=== PATIENT | male | born 1940 | race Caucasian/White ===

== ENCOUNTER 2018-02-18 21:20 | Inpatient (IN) | payer MEDICARE ==
[~2018-02-18] VITALS: Ht 175.3 cm; Wt 88.9 kg
[2018-02-18 21:30] VITALS: BP 140/87
[2018-02-18] MEDS ORDERED: cefTRIAXone 1 GM in NS 55 ML IVPB ONE (21:30)
[2018-02-18] MEDS ORDERED: NS 1000ml 2,900 ML IVLG ONE (21:30)
[2018-02-18 22:14] LABS: BASOPHILS % (AUTO) 1.8 % (0.0-2.0); EOSINOPHILS % (AUTO) 0.5 % (0.0-3.0); HEMATOCRIT 37.8 % (42.0-52.0); HEMOGLOBIN 12.3 G/DL (14.2-18.0); LYMPHOCYTES % (AUTO) 6.5 % (20.0-45.0); MEAN CORPUSCULAR VOLUME 87 FL (80-99); MONOCYTES % (AUTO) 10.8 % (1.0-10.0); NEUTROPHILS % (AUTO) 80.5 % (45.0-75.0); PLATELET COUNT 202 K/UL (150-450); RED BLOOD COUNT 4.33 M/UL (4.70-6.10); RED CELL DISTRIBUTION WIDTH 12.9 % (11.6-14.8); WHITE BLOOD COUNT 12.8 K/UL (4.8-10.8)
[2018-02-18 22:23] LABS: APPEARANCE,URINE CLEAR; BILIRUBIN, URINE NEGATIVE (NEGATIVE); COLOR,URINE PALE YELLOW; GLUCOSE, URINE (UA) NEGATIVE (NEGATIVE); KETONES,URINE NEGATIVE (NEGATIVE); LEUKOCYTE ESTERASE ,URINE 1+ (NEGATIVE); NITRITE,URINE NEGATIVE (NEGATIVE); PH,URINE 6.5 (4.5-8.0); PROTEIN,URINE 3+ (NEGATIVE); UROBILINOGEN,URINE NORMAL MG/DL (0.0-1.0)
[2018-02-18 22:37] LABS: ANION GAP 11 mmol/L (5-15); BLOOD UREA NITROGEN 21 mg/dL (7-18); CALCIUM 9.4 MG/DL (8.5-10.1); CARBON DIOXIDE 25 MMOL/L (21-32); CHLORIDE 99 MMOL/L (98-107); CREATININE 1.4 MG/DL (0.55-1.30); POTASSIUM 4.6 MMOL/L (3.5-5.1); SODIUM 135 MMOL/L (136-145)
[2018-02-18 22:50] LABS: ALANINE AMINOTRANSFERASE 15 U/L (12-78); ALBUMIN/GLOBULIN RATIO 0.7 (1.0-2.7); ALKALINE PHOSPHATASE 71 U/L (46-116); ASPARTATE AMINO TRANSFERASE 40 U/L (15-37); BILIRUBIN,TOTAL 0.4 MG/DL (0.2-1.0); CKMB 3.2 NG/ML (0.0-3.6); CREATINE KINASE 1086 U/L (26-308)
[2018-02-18 23:00] VITALS: BP 106/83
[2018-02-19] VITALS (7 sets, daily range): BP systolic 108–124; BP diastolic 53–97
--- NOTE | 2018-02-19 00:42 | Emergency Room Report ---
History of Present Illness General Chief Complaint: Altered Level of Consciousness Source: Patient, EMS, Caregiver Present Illness HPI Patient presents with paramedics escorted by teletray operator Police Liaison Officer reports the patient has been having low-grade fevers And today appeared to be more confused than usual Patient has a AMORTIZATION CLERK shunt in place Patient's primary physician contacted me Patient had been recently feeling weak and was having close outpatient follow- up however became acutely febrile and was brought to the ER Here the patient denies any chest pain denies any cough Police Liaison Officer denies any vomiting or diarrhea Allergies: Coded Allergies: PENICILLINS (Verified Allergy, Unknown, 02/18/18) Patient History Past Medical History: see triage record Pertinent Family History: none Reviewed Nursing Documentation: PMH: Agreed; PSxH: Agreed Nursing Documentation-PMH Past Medical History: No History, Except For Hx Hypertension: Yes Review of Systems All Other Systems: negative except mentioned in HPI Physical Exam Vital Signs Date Time Temp Pulse Resp B/P (MAP) Pulse Ox O2 Delivery O2 Flow Rate FiO2 02/18/18 21:21 101.6 90 22 104/63 95 Room Air 101.7 Sp02 EP Interpretation: reviewed, normal General Appearance: no apparent distress Head: other - AMORTIZATION CLERK shunt palpable in the right parietal region Eyes: bilateral eye PERRL ENT: normal pharynx, no angioedema Neck: supple, thyroid normal Respiratory: lungs clear, normal breath sounds Cardiovascular #1: regular rate, rhythm, no edema Gastrointestinal: non tender, soft Musculoskeletal: normal inspection Neurologic: alert, responsive Skin: no rash, warm/dry Lymphatic: no adenopathy Medical Decision Making Diagnostic Impression: Primary Impression: Sepsis Additional Impression: Encephalopathy ER Course Patient is complex with multiple differentials Including but not limited to infectious, neurological, cardiac, cardiopulmonary pathology Patient has broad-spectrum antibiotics initiated IV hydration X-ray does not show any obvious acute pathology CT head did not show any obvious pathology as well The need to be consideration regarding AMORTIZATION CLERK shunt infection However patient will have further inpatient care Labs Test 02/18/18 21:40 02/18/18 22:00 White Blood Count 12.8 K/UL (4.8-10.8) Red Blood Count 4.33 M/UL (4.70-6.10) Hemoglobin 12.3 G/DL (14.2-18.0) Hematocrit 37.8 % (42.0-52.0) Mean Corpuscular Volume 87 FL (80-99) Mean Corpuscular Hemoglobin 28.5 PG (27.0-31.0) Mean Corpuscular Hemoglobin Concent 32.7 G/DL (32.0-36.0) Red Cell Distribution Width 12.9 % (11.6-14.8) Platelet Count 202 K/UL (150-450) Mean Platelet Volume 5.4 FL (6.5-10.1) Neutrophils (%) (Auto) 80.5 % (45.0-75.0) Lymphocytes (%) (Auto) 6.5 % (20.0-45.0) Monocytes (%) (Auto) 10.8 % (1.0-10.0) Eosinophils (%) (Auto) 0.5 % (0.0-3.0) Basophils (%) (Auto) 1.8 % (0.0-2.0) Sodium Level 135 MMOL/L (136-145) Potassium Level 4.6 MMOL/L (3.5-5.1) Chloride Level 99 MMOL/L (98-107) Carbon Dioxide Level 25 MMOL/L (21-32) Anion Gap 11 mmol/L (5-15) Blood Urea Nitrogen 21 mg/dL (7-18) Creatinine 1.4 MG/DL (0.55-1.30) Estimat Glomerular Filtration Rate mL/min (>60) Glucose Level 130 MG/DL (74-106) Lactic Acid Level 0.80 mmol/L (0.4-2.0) Calcium Level 9.4 MG/DL (8.5-10.1) Total Bilirubin 0.4 MG/DL (0.2-1.0) Aspartate Amino Transf (AST/SGOT) 40 U/L (15-37) Alanine Aminotransferase (ALT/SGPT) 15 U/L (12-78) Alkaline Phosphatase 71 U/L (46-116) Total Creatine Kinase 1086 U/L (26-308) Creatine Kinase MB 3.2 NG/ML (0.0-3.6) Creatine Kinase MB Relative Index 0.2 Troponin I 0.007 ng/mL (0.000-0.056) Pro-B-Type Natriuretic Peptide 805 pg/mL (0-125) Total Protein 7.6 G/DL (6.4-8.2) Albumin 3.0 G/DL (3.4-5.0) Globulin 4.6 g/dL Albumin/Globulin Ratio 0.7 (1.0-2.7) Lipase 137 U/L (73-393) Urine Color Pale yellow Urine Appearance Clear Urine pH 6.5 (4.5-8.0) Urine Specific [place] 1.010 (1.005-1.035) Urine Protein 3+ (NEGATIVE) Urine Glucose (UA) Negative (NEGATIVE) Urine Ketones Negative (NEGATIVE) Urine Occult Blood 2+ (NEGATIVE) Urine Nitrite Negative (NEGATIVE) Urine Bilirubin Negative (NEGATIVE) Urine Urobilinogen Normal MG/DL (0.0-1.0) Urine Leukocyte Esterase 1+ (NEGATIVE) Urine RBC 5-10 /HPF (0 - 0) Urine WBC 2-4 /HPF (0 - 0) Urine Squamous Epithelial Cells None /LPF (NONE/OCC) Urine Amorphous Sediment Few /LPF (NONE) Urine Bacteria Few /HPF (NONE) Rhythm Strip Diag. Results EP Interpretation: yes Rate: 87 Rhythm: NSR, no PVC's, no ectopy Chest X-Ray Diagnostic Results Chest X-Ray Diagnostic Results : Chest X-Ray Ordered: Yes # of Views/Limited/Complete: 1 View Indication: Chest Pain EP Interpretation: Yes Interpretation: no consolidation, no effusion, no pneumothorax Impression: No acute disease Electronically Signed by: Vicki Guerrero DO CT/MRI/US Diagnostic Results CT/MRI/US Diagnostic Results : Impression CT head no acute disease Last Vital Signs Date Time Temp Pulse Resp B/P (MAP) Pulse Ox O2 Delivery O2 Flow Rate FiO2 02/18/18 23:34 99.6 02/18/18 21:21 90 22 104/63 95 Room Air Status: improved Disposition: ADMITTED INPATIENT Condition: Serious Referrals: NON PHYSICIAN (PCP) Vicki Guerrero DO Feb 19, 2018 00:41
[2018-02-19] MEDS ORDERED: PROPRANOLOL HCL20 MG ORAL (02:04)
[2018-02-19] MEDS ORDERED: NEURONTIN600 MG ORAL (02:04)
[2018-02-19] MEDS ORDERED: [UNRECOGNIZED DRUG - OTHER] (02:04)
[2018-02-19] MEDS ORDERED: FAMOTIDINE20 MG ORAL (02:04)
[2018-02-19] MEDS ORDERED: FISH OIL CAP1000 MG ORAL (02:04)
[2018-02-19] MEDS ORDERED: SIMVASTATIN20 MG ORAL (02:04)
[2018-02-19] MEDS ORDERED: DOCUSATE SODIU100 MG ORAL (02:04)
[2018-02-19] MEDS ORDERED: ALLOPURINOL300 M1 ORAL (02:04)
[2018-02-19] MEDS ORDERED: PROSCAR5 MG ORAL (02:04)
[2018-02-19] MEDS ORDERED: RAPAFLO-PATIENT'1 EA PO (02:04)
[2018-02-19] MEDS ORDERED: NEURONTIN300 MG ORAL ×2 (02:04)
[2018-02-19] MEDS ORDERED: CENTRUM SILVER1 EAC4 PO (02:04)
[2018-02-19] MEDS ORDERED: CYMBALTA60 MG ORAL (02:04)
[2018-02-19] MEDS ORDERED: NEURONTIN800 MG ORAL (02:04)
[2018-02-19] MEDS ORDERED: NUCYNTA50 MG PO (02:05)
[2018-02-19] MEDS ORDERED: Vancomycin 1.5 GM/D5W 250ML IVPB SCH (03:00)
[2018-02-19] MEDS ORDERED: Cefepime HCl 1 GM in D5W 55 ML IVPB SCH (05:00)
[2018-02-19] MEDS ORDERED: Propranolol 10mg tab ORAL SCH (06:00)
[2018-02-19 08:30] LABS: BASOPHILS % (AUTO) 1.1 % (0.0-2.0); EOSINOPHILS % (AUTO) 0.7 % (0.0-3.0); HEMATOCRIT 35.4 % (42.0-52.0); HEMOGLOBIN 11.6 G/DL (14.2-18.0); LYMPHOCYTES % (AUTO) 7.3 % (20.0-45.0); MEAN CORPUSCULAR VOLUME 89 FL (80-99); MONOCYTES % (AUTO) 11.8 % (1.0-10.0); NEUTROPHILS % (AUTO) 79.1 % (45.0-75.0); PLATELET COUNT 196 K/UL (150-450); RED CELL DISTRIBUTION WIDTH 12.6 % (11.6-14.8); WHITE BLOOD COUNT 12.1 K/UL (4.8-10.8)
[2018-02-19] MEDS ORDERED: LORazepam 1mg tab ORAL PRN (08:30)
[2018-02-19 08:55] LABS: ALANINE AMINOTRANSFERASE 31 U/L (12-78); ALBUMIN 2.7 G/DL (3.4-5.0); ALBUMIN/GLOBULIN RATIO 0.6 (1.0-2.7); ALKALINE PHOSPHATASE 64 U/L (46-116); ANION GAP 10 mmol/L (5-15); ASPARTATE AMINO TRANSFERASE 36 U/L (15-37); BILIRUBIN,TOTAL 0.5 MG/DL (0.2-1.0); BLOOD UREA NITROGEN 16 mg/dL (7-18); CALCIUM 8.5 MG/DL (8.5-10.1); CARBON DIOXIDE 23 MMOL/L (21-32); CHLORIDE 103 MMOL/L (98-107); CREATININE 1.1 MG/DL (0.55-1.30); SODIUM 136 MMOL/L (136-145)
[2018-02-19] MEDS ORDERED: Heparin 5000 units/ml inj SUBQ SCH (09:00)
[2018-02-19] MEDS ORDERED: DULoxetine 30mg cap ORAL SCH (09:00)
[2018-02-19] MEDS ORDERED: Docusate 100mg cap ORAL SCH ×2 (09:00→18:00)
--- NOTE | 2018-02-19 10:23 | Diagnostic Imaging Report ---
Indication: Headache Technique: Contiguous 5 mm thick transaxial imaging of the head obtained in a Siemens Sensation [address] scanner. Soft tissue and bone windows generated. Automatic Exposure Control was utilized. Total Dose length Product (DLP): 1397.[address] Dose Index Volume (CTDIvol): 70.38 mGy Comparison: 08/18/2014 Findings: There is a right frontal ventriculostomy catheter which appears to be in good position. The tip of the catheter is in the anterior horn of the right lateral ventricle. There is mild encephalomalacia in the right frontal lobe. There is moderate prominence of the ventricles, basal cisterns, and cerebral sulci consistent with atrophy. Moderate, nonspecific, white matter hypoattenuation is noted throughout the brain consistent with chronic small vessel disease. Extensive calcification of the interhemispheric fissure noted. There is no midline shift, edema, acute hemorrhage, mass effect, or abnormal extra-axial fluid collections. Bones and extra osseous soft tissues are unremarkable. Impression: No acute intracranial bleed, mass effect or edema. Right frontal ventriculostomy noted. Moderate atrophy of the brain. Evidence of chronic small vessel disease involving white matter tracts. [facility] has communicated the preliminary results to the Emergency Department. Their findings are largely concordant with this report. No interval change The CT scanner at [facility] is accredited by the [employer] and the scans are performed using dose optimization techniques as appropriate to a performed exam including Automatic Exposure control.
--- NOTE | 2018-02-19 11:37 | Diagnostic Imaging Report ---
Indication: Chest pain Comparison: 08/18/2014 A single view chest radiograph was obtained. Findings: There is a right-sided ventriculoperitoneal shunt noted. Cardiomediastinal appearance is within normal limits for age. Pulmonary vascularity is appropriate. The diaphragmatic contour is smooth and costophrenic angles are sharp. No pleural effusions are identified. The bones are osteopenic. Impression: No acute findings
[2018-02-19] MEDS: Propranolol 10mg tab ORAL SCH ×2 (12:51→18:06)
[2018-02-19] MEDS ORDERED: Vancomycin 750mg/NS 250ml IVPB SCH (15:00)
[2018-02-19] MEDS ORDERED: Vancomycin 750mg/NS 250ml 250 ML IVPB SCH (15:00)
[2018-02-19] MEDS ORDERED: Norco 5mg/325mg tab ORAL PRN (16:00)
[2018-02-19] MEDS ORDERED: Ketorolac 60mg Inj IM PRN (16:45)
--- NOTE | 2018-02-19 18:02 | History and Physical Report ---
DATE OF ADMISSION: 02/18/2018 REASON FOR ADMISSION: Change in sensorium. HISTORY: The patient is a 77-year-old male, who is well known to me. The patient was brought in by his caregiver with low-grade fever, some mild confusion. The patient appears to be at his baseline mental state. At present, the patient has a SPINNING MACHINE TENDER shunt from prior head injury and significant head trauma. The patient has had no falls. No other injuries. Denies any cough or congestion. The patient denies any history of dysuria at this time. The patient is admitted for acute renal failure as well as leukocytosis and possible sepsis. The patient is seen in the emergency room. CT of the head was done, which shows no acute changes. The patient does have also chronic pain syndrome. The patient did receive Rocephin in the emergency room without any significant issues. PAST MEDICAL HISTORY: As above. The patient also has benign prostatic hyperplasia. He has significant peripheral neuropathy, has a history of SPINNING MACHINE TENDER shunt, and cerebral injury. The patient with history of subarachnoid hemorrhage as well. The patient also with history of hypertension and hypercholesterolemia. MEDICATIONS: Reviewed. ALLERGIES: Reviewed. SOCIAL HISTORY: Currently, he does not smoke or drink. He does have a caregiver. He is otherwise fairly independent and alert. LABORATORY AND DIAGNOSTIC DATA: Lab data otherwise reviewed. White count 12.8 and hemoglobin 12.3. Chemistry notable for BUN 21 and creatinine 1.4. BNP is 805. CK is 1086. IMPRESSION: 1. Acute renal failure, likely prerenal. 2. History of BPH. 3. History of hypertension. 4. History of hypercholesterolemia. 5. Acute encephalopathy, now improved. 6. History of SPINNING MACHINE TENDER shunt. 7. Possible sepsis. 8. Possible urinary tract infection. RECOMMENDATION: Empiric antibiotics for now. IV hydration. Monitor laboratories and recommend. Transfer off telemetry. We will follow status, stabilize, obtain physical therapy, pain control and antianxiety medication and discharged home in the morning if stable. Km García M.D. DR: ZULEYKA JOB#: [id number] CC: IVIS
[2018-02-19] MEDS ORDERED: Tamsulosin 0.4mg cap ORAL SCH ×2 (21:00)
--- NOTE | 2018-02-19 21:02 | Consultation ---
DATE OF CONSULTATION: 02/19/2018 INFECTIOUS DISEASE CONSULTATION CONSULTING PHYSICIAN: Jessica Peng M.D. REFERRING PHYSICIAN: Km García M.D. REASON FOR CONSULTATION: Fever. HISTORY OF PRESENTING ILLNESS: This is a 77-year-old gentleman with history of hypertension, EMERGENCY DEPARTMENT MANAGER shunt placement who comes in with fevers and more confusion. He was seen in [facility] where he was found to have a fever and Infectious Diseases consultation has been obtained for antibiotics. PAST MEDICAL HISTORY: 1. History of hypertension. 2. History of EMERGENCY DEPARTMENT MANAGER shunt placement. MEDICATIONS: As an inpatient, he is on allopurinol, Cymbalta, Pepcid, Proscar, Neurontin, cefepime, atorvastatin, gabapentin, subcutaneous heparin, Flomax, docusate, IV vancomycin, Ativan, and Tylenol. ALLERGIES: He is allergic to penicillin. SOCIAL HISTORY: He does not smoke. He drinks alcohol socially. No history of drug use. FAMILY HISTORY: Noncontributory. REVIEW OF SYSTEMS: RESPIRATORY: He did have fevers. He has some cough. He has shortness of breath. No chest pain. CARDIAC: No chest pain. No palpitations. No dizziness. No syncope. GASTROINTESTINAL: No nausea. No vomiting. No abdominal pain or diarrhea. PHYSICAL EXAMINATION: VITAL SIGNS: Temperature of 97.5 degrees, T-max of 101.7 degrees, pulse of 76, respiratory rate 20, blood pressure 122/68, and O2 saturation of 98%. HEENT: Pupils equally reactive to light and accommodation. Mouth appears clean without thrush. NECK: Supple. No adenopathy. No JVD. CARDIOVASCULAR: Regular rate and rhythm. No murmurs. LUNGS: Clear to auscultation bilaterally. No crackles. No wheezes. ABDOMEN: Soft and nontender. No organomegaly. EXTREMITIES: No cyanosis, no clubbing, and no edema. LABORATORY AND DIAGNOSTIC DATA: White count 12.1, hemoglobin 11.6, hematocrit 35.4, MCV 99, and platelet count of 196 with neutrophils of 79%. Sodium 136, potassium 4, chloride 103, bicarbonate 23, BUN 16, creatinine 1.1, glucose 127, and calcium 8.5. Total bilirubin 0.5. AST 36, ALT 31, and alkaline phosphatase 64. Total protein 6.9. Albumin 2.7. Lipase of 137. UA is showing 2 to 4 white cells. Chest x-ray is showing no acute findings. CT brain showing moderate atrophy of the brain. No acute intracranial bleed, mass effect, or edema. Right frontal ventriculostomy noted, chronic small vessel disease involving the white matter tracts noted. ASSESSMENT: 1. This is a 77-year-old gentleman with history of ventriculoperitoneal shunt placement and hypertension, who comes in with fevers, concerned regarding a pneumonia, although his initial chest x-rays are negative. We would also like to rule out urinary tract infection as a possibility. 2. Fevers, improving. PLAN: 1. We will order urine cultures. 2. We will order sputum for Gram stain and culture. 3. Continue vancomycin and cefepime. 4. We will follow up cultures and adjust antibiotics accordingly. I would like to thank Dr. García for this consultation. Jessica Peng M.D. DR: EDI JOB#: [id number] CC: Km García M.D.; Fax#: [phone]
[2018-02-19] MEDS: Cefepime HCl 1 GM in D5W 55 ML IVPB SCH (21:22)
[2018-02-19] MEDS: LORazepam 1mg tab ORAL PRN (21:24)
[2018-02-19] MEDS: Heparin 5000 units/ml inj SUBQ SCH (21:25)
[2018-02-20] VITALS: BP 120/69
[2018-02-20] MEDS: Propranolol 10mg tab ORAL SCH ×3 (00:58→12:00)
[2018-02-20] MEDS ORDERED: Vancomycin 1gm/D5W 275ml IVPB SCH ×2 (03:00)
[2018-02-20 04:00] VITALS: BP 131/67
[2018-02-20] MEDS: LORazepam 1mg tab ORAL PRN (04:08)
[2018-02-20 06:54] LABS: BASOPHILS % (AUTO) 1.6 % (0.0-2.0); HEMATOCRIT 41.5 % (42.0-52.0); HEMOGLOBIN 13.2 G/DL (14.2-18.0); LYMPHOCYTES % (AUTO) 10.9 % (20.0-45.0); MEAN CORPUSCULAR VOLUME 88 FL (80-99); MONOCYTES % (AUTO) 9.3 % (1.0-10.0); NEUTROPHILS % (AUTO) 77.2 % (45.0-75.0); PLATELET COUNT 197 K/UL (150-450); RED BLOOD COUNT 4.71 M/UL (4.70-6.10); RED CELL DISTRIBUTION WIDTH 12.7 % (11.6-14.8); WHITE BLOOD COUNT 9.5 K/UL (4.8-10.8)
[2018-02-20 07:07] LABS: ANION GAP 8 mmol/L (5-15); BLOOD UREA NITROGEN 17 mg/dL (7-18); CALCIUM 9.5 MG/DL (8.5-10.1); CARBON DIOXIDE 27 MMOL/L (21-32); CHLORIDE 101 MMOL/L (98-107); CREATININE 1.3 MG/DL (0.55-1.30); SODIUM 136 MMOL/L (136-145)
[2018-02-20] MEDS: Cefepime HCl 1 GM in D5W 55 ML IVPB SCH (09:00)
[2018-02-20] MEDS ORDERED: DULoxetine 30mg cap ORAL SCH (09:00)
--- NOTE | 2018-02-20 09:08 | General Progress Note ---
Assessment/Plan Assessment/Plan IMPRESSION: 1. Acute renal failure, likely prerenal. 2. History of BPH. 3. History of hypertension. 4. History of hypercholesterolemia. 5. Acute encephalopathy, now improved. 6. History of MANAGER FORENSIC shunt. 7. Possible sepsis. 8. Possible urinary tract infection. PLAN dc home home health [facility] [place] dc outpatient follow up maintain hydration stable for dc d/w ex impression, plan, and exam edited and reviewed in detail care discussed with RN Subjective Allergies: Coded Allergies: PENICILLINS (Verified Allergy, Unknown, 02/18/18) Subjective much better alert cultures negative care discussed in detail Objective Last 24 Hour Vital Signs Date Time Temp Pulse Resp B/P (MAP) Pulse Ox O2 Delivery O2 Flow Rate FiO2 02/20/18 06:31 77 131/67 02/20/18 04:00 98.1 77 20 131/67 (88) 91 98.1 02/20/18 00:58 61 120/69 02/20/18 00:00 98.7 61 20 120/69 (86) 92 98.7 02/19/18 21:00 Room Air 02/19/18 20:00 97.9 65 20 123/72 (89) 91 97.9 02/19/18 18:06 66 115/75 02/19/18 16:00 98.1 66 20 115/75 (88) 92 98.1 02/19/18 12:51 74 124/82 02/19/18 12:00 98.6 74 20 124/82 (96) 98 98.6 Intake and Output 02/19/18 02/20/18 19:00 07:00 Intake Total 970 ml Balance 970 ml Intake Oral 470 ml IV Total 500 ml # Voids 3 3 # Bowel Movements 2 1 Laboratory Tests 02/20/18 06:00: White Blood Count 9.5, Red Blood Count 4.71, Hemoglobin 13.2L, Hematocrit 41.5L , Mean Corpuscular Volume 88, Mean Corpuscular Hemoglobin 28.0, Mean Corpuscular Hemoglobin Concent 31.8L, Red Cell Distribution Width 12.7, Platelet Count 197, Mean Platelet Volume 5.7L, Neutrophils (%) (Auto) 77.2H, Lymphocytes (%) (Auto) 10.9L, Monocytes (%) (Auto) 9.3, Eosinophils (%) (Auto) 1.0, Basophils (%) (Auto) 1.6, Sodium Level 136, Potassium Level 4.0, Chloride Level 101, Carbon Dioxide Level 27, Anion Gap 8, Blood Urea Nitrogen 17, Creatinine 1.3, Estimat Glomerular Filtration Rate , Glucose Level 127H, Calcium Level 9.5 Height (Feet): 5 Height (Inches): 9.00 Weight (Pounds): 196 Objective WDWN NAD clear breath sounds bilaterally without rhonchi or wheeze [id number] without MRG NABS nontender no HSM no CCE unsteady gait MANAGER FORENSIC shunt visible Km García MD Feb 20, 2018 09:08
[2018-02-20] MEDS: Heparin 5000 units/ml inj SUBQ SCH (09:42)
[2018-02-20 10:58] VITALS: BP 121/69
[2018-02-20 11:11] VITALS: BP 108/53
--- NOTE | 2018-02-22 11:02 | Discharge Summary ---
Discharge Summary Discharge Summary _ DATE OF ADMISSION: 02/18/2018 DATE OF DISCHARGE: 02/20/2018 REASON FOR ADMISSION: 77 years old male with history of hypertension ,hypercholesterolemia , STAVE AND BOLT EQUALIZER shunt, was brought in by ambulance accompanied by anesthesia technician due to fevers and altered mental status. In emergency room upon evaluation temperature 101.6 ,respiratory rate 22 ,pulse oximetry stable on room air Laboratory workup revealed leukocytosis WBC 12.8 Lactic acid was within normal limits. BUN [address] of the head revealed no acute intracranial pathology but show ed chronic small vessel disease and moderate brain atrophy. Chest x-ray revealed no acute cardiopulmonary pathology Urinalysis with evidence of +3 protein, but no evidence of UTI Patient admitted with diagnosis of possible sepsis, acute encephalopathy, acute renal failure likely prerenal ,history of hypertension, history of hypercholesterolemia, history of STAVE AND BOLT EQUALIZER shunt. CONSULTANTS: ID specialist HOSPITAL COURSE: Patient admitted. Patient initially started on the IV fluids and empiric antibiotics. ID specialist closely followed. Blood culture were negative, sputum culture was negative, urine culture was negative Leukocytosis and fevers resolved Antibiotic discontinued Renal parameters and electrolytes were closely monitored BUN down to 17 ,creatinine down to 1.3 Pain management was addressed Patient was working with physical and occupational therapists Fall precautions were maintained Supportive care provided Bowel regimen instituted Antianxiety provided as needed Patient was stable for discharge home with home health services FINAL DIAGNOSES: Acute encephalopathy Acute renal failure likely prerenal -resolving History of hypertension History of hypercholesterolemia History of STAVE AND BOLT EQUALIZER shunt DISCHARGE INSTRUCTIONS: Patient was discharged home with home health services. Follow up with primary care provider as outpatient in one week I have been assigned to dictate discharge summary for this account. I was not involved in the patient's management. Mary Carvalho NP Feb 22, 2018 11:02
--- NOTE | 2018-02-22 12:22 | Cardiology Report ---
APPROVED REPORT EKG Measurement Heart [id number] Sinus rhythm with occasional premature ventricular complexes Left axis deviation Abnormal ECG
== END 2018-02-20 15:00 | disposition home health service (06) | DRG 682 ==
LOC: EDBD 21:20 → EDUNIT# 21:20 → EMR 21:34 → 2E 22:21 → EDBEDREQ 02-19 01:35 → 2E 02-19 02:07 → 3E 02-19 09:40
DX: N17.9 Acute kidney failure, unspecified (principal); G93.40 Encephalopathy, unspecified; N40.0 Benign prostatic hyperplasia without lower urinary tract symptoms; E78.00 Pure hypercholesterolemia, unspecified; Z98.2 Presence of cerebrospinal fluid drainage device; I10 Essential (primary) hypertension; Z88.0 Allergy status to penicillin
CPT/HCPCS: 36415; 70450; 71045; 80048; 80053; 81003; 82550; 82553; 83605; 83690; 83880; 84484; 85025; 87040; 87070; 87086; 87205; 93005; 99284; 99285